=== PATIENT | male | born 1995 | race Caucasian/White ===

== ENCOUNTER 2024-02-02 19:25 | Inpatient (IN) | payer OTHER ==
[2024-02-02] MEDS ORDERED: ACETAMINOPHEN 500 MG TABLET (FP) ONE (20:20)
[2024-02-02] MEDS ORDERED: IBUPROFEN 400 MG TABLET (FP) PO ONE (20:20)
[2024-02-02] MEDS ORDERED: CEFTRIAXONE 1 GM/50 ML BAG ONE (20:34)
[2024-02-02] MEDS: ACETAMINOPHEN 500 MG TABLET (FP) PO ONE (20:40)
[2024-02-02] MEDS: IBUPROFEN 400 MG TABLET (FP) PO ONE (20:40)
[2024-02-02 20:49] LABS: BASO % 0.7 % (0-2.0); EOS % 0.6 % (0-4.5); HEMATOCRIT 45.8 % (35.4-49); HEMOGLOBIN 15.5 GM/dL (11.7-16.9); LYMPH % 17.1 % (8-40); MCH 29.9 pg (25.7-33.7); MCHC 33.9 g/dl (32.0-35.9); MEAN CELL VOLUME 88.3 fl (80-96); MEAN PLT VOLUME 8.8 fl (7.5-11.1); MONO % 11.2 % (3.8-10.2); NEUT % 70.4 % (42.8-82.8); PLATELET COUNT 184 10^3/uL (134-434); RBC 5.18 M/mm3 (4.00-5.60); RDW 13.9 % (11.9-15.9); WHITE BLOOD COUNT 6.5 K/mm3 (4.0-10.0)
[2024-02-02] MEDS: LACTATED RINGERS SOLUTION 1000 ML INFUS.BAG IV ONE (20:57)
[2024-02-02 21:08] LABS: POTASSIUM 4.2 mmol/L (3.5-5.1)
[2024-02-02 21:11] LABS: ALBUMIN 3.9 g/dl (3.4-5.0); CALCIUM 9.2 mg/dL (8.5-10.1)
[2024-02-02 21:16] LABS: BILIRUBIN,TOTAL 1.4 mg/dL (0.2-1); TOT PROT 7.9 g/dl (6.4-8.2)
[2024-02-02 21:45] LABS: BILIRUBIN,DIRECT 0.2 mg/dL (0.0-0.2)
[2024-02-02] MEDS ORDERED: AZITHROMYCIN IVPB 500 MG/250 ML BAG IVPB ONE (22:39)
[2024-02-02] MEDS ORDERED: ALBUTEROL SO4 2.5/IPRATROPIUM 0.5 INH SOL 3 ML VIAL.NEB. NEB ONE (22:39)
[2024-02-02] MEDS: AZITHROMYCIN IVPB 500 MG in DEXTROSE 5%-WATER - 250 ML IVPB ONE (22:51)
[2024-02-02] MEDS: ALBUTEROL SO4 2.5/IPRATROPIUM 0.5 INH SOL 3 ML VIAL.NEB. NEB SCH (22:51)
[2024-02-02] MEDS: CEFTRIAXONE 1 GM in DEXTROSE 5%-WATER - 50 ML IVPB ONE ×2 (23:43→23:44)
[2024-02-02] MEDS ORDERED: LACTATED RINGERS SOLUTION 1,000 ML/1,000 ML INFUS.BAG IV SCH (23:45)
[2024-02-03 03:56] VITALS: RESP 18; BMI 34.7
[2024-02-03 08:24] LABS: EOS % 2.4 % (0-4.5); HEMATOCRIT 43.1 % (35.4-49); HEMOGLOBIN 14.8 GM/dL (11.7-16.9); LYMPH % 21.9 % (8-40); MCH 30.3 pg (25.7-33.7); MCHC 34.3 g/dl (32.0-35.9); MEAN CELL VOLUME 88.4 fl (80-96); MEAN PLT VOLUME 9.1 fl (7.5-11.1); MONO % 12.7 % (3.8-10.2); PLATELET COUNT 209 10^3/uL (134-434); RBC 4.87 M/mm3 (4.00-5.60); RDW 13.8 % (11.9-15.9)
[2024-02-03 08:30] LABS: POTASSIUM 3.8 mmol/L (3.5-5.1)
[2024-02-03 08:49] LABS: ALBUMIN 3.6 g/dl (3.4-5.0)
[2024-02-03 08:52] LABS: CREATININE 0.9 mg/dL (0.55-1.3)
[2024-02-03 08:54] LABS: BILIRUBIN,TOTAL 0.7 mg/dL (0.2-1); TOT PROT 7.5 g/dl (6.4-8.2)
[2024-02-03] MEDS: ENOXAPARIN NA (PORCINE) 40 MG/0.4 ML DISP.SYRIN SQ SCH (09:12)
[2024-02-03] MEDS ORDERED: AZITHROMYCIN IVPB 500 MG/250 ML BAG IVPB SCH (10:00)
[2024-02-03 12:07] LABS: HIV INTERPRETATION NEGATIVE (NEGATIVE)
[2024-02-03] MEDS: AZITHROMYCIN IVPB 500 MG/250 ML BAG IVPB SCH (21:42)
[2024-02-03] MEDS: CEFTRIAXONE 1 GM in DEXTROSE 5%-WATER - 50 ML IVPB SCH (22:35)
[2024-02-04] MEDS: ALBUTEROL SO4 0.083% IH SOL 2.5 MG/3 ML VIAL.NEB. NEB SCH ×2 (12:11→12:12)
[2024-02-05] MEDS ORDERED: BENZONATATE 200 MG CAPSULE PO PRN (07:59)
[2024-02-05] MEDS: guaiFENesin 600 MG TABLET.ER (FP) PO SCH (09:53)
[2024-02-05 14:14] VITALS: BP 132/83; PULSE 92; TEMP 98.8
== END 2024-02-05 17:04 | disposition home or self-care (01) | DRG 195 ==
LOC: JERFT 19:25 → JER 19:25 → JERBED 21:40 → OBSVTOIN 23:39 → J7W 02-03 01:11
PROVIDERS: ADMIT Internal Medicine; ATTEND Nurse Practitioner
DX: J18.9 Pneumonia, unspecified organism (principal); J45.909 Unspecified asthma, uncomplicated
CPT/HCPCS: 0241U-QW; 36415; 71046-TC-FY; 71275-TC; 80053; 82248; 83605; 85025; 86704; 86706; 86709; 86738; 87040; 87070; 87205; 87350; 87389; 87522; 87899; 93005; 93010; 94010; 94640; 99285-25; G0378; Q9967